=== PATIENT | male | born 1980 | race Caucasian/White ===

== ENCOUNTER 2019-07-12 12:35 | Emergency (ER) | payer OTHER, SELFPAY ==
[2019-07-12 13:25] LABS: #Basophils 0.1 thou/uL (0.0-0.2); #Eosinphils 0.4 thou/uL (0.0-0.7); #Lymphocytes 2.4 thou/uL (1.20-3.40); #Monocytes 0.6 thou/uL (0.11-0.59); %Basophils 0.6 % (0.0-1.0); %Eosinophils 3.8 % (0.0-10.0); %Lymphocytes 25.8 % (21.0-51.0); %Monocytes 6.1 % (0.0-10.0); %Neutrophils 63.7 % (42.0-75.0); Hemoglobin 15.2 g/dL (14.0-18.0); Mean Corpuscular HGB CONC 33.5 g/dL (32.0-36.0); Mean Corpuscular Hemoglobin 29.8 pg (27.0-31.0); Mean Corpuscular Volume 89.1 fL (78.0-98.0); Mean Platelet Volume 7.5 fL (7.4-10.4); Platelet Count 319 thou/uL (130-400); RBC Distribution Width 11.5 % (11.5-14.5); Red Blood Cell (RBC) Count 5.08 mill/uL (4.70-6.10); White Blood Cell (WBC) Count 9.4 thou/uL (4.8-10.8)
[2019-07-12 13:35] LABS: ALT (SGPT) 85 U/L (8-55); AST (SGOT) 41 U/L (5-34); Albumin 4.3 g/dL (3.5-5.0); Alkaline Phosphatase 88 U/L (40-110); Anion Gap 15 mmol/L (10-20); BUN (Urea Nitrogen) 10 mg/dL (8.9-20.6); Bilirubin, Total 1.1 mg/dL (0.2-1.2); Calc. Creatinine Clearance 0 mL/min (70-130); Calcium 9.1 mg/dL (7.8-10.44); Carbon Dioxide 23 mmol/L (22-29); Chloride 106 mmol/L (98-107); Estimated GFR-MDRD Greater than 90; Globulin 2.9 g/dL (2.4-3.5); Glucose 99 mg/dL (70-105); Potassium 4.1 mmol/L (3.5-5.1); Protein, Total 7.2 g/dL (6.0-8.3); Sodium 140 mmol/L (136-145)
[2019-07-12] MEDS ORDERED: Rivaroxaban 10 MG TAB ONE (14:33)
[2019-07-12 14:40] LABS: PTT 27.1 SEC (22.9-36.1); Prothrombin Time 12.9 SEC (12.0-14.7)
--- NOTE | 2019-07-12 15:04 | ULT ---
VENOUS DUPLEX STUDY RIGHT LOWER EXTREMITY: Date: 07/12/19 INDICATION: Right lower extremity pain and edema. FINDINGS: Ultrasound Doppler study performed on venous structures. Color Doppler with spectral analysis and com pression studies performed. The right common femoral and superficial femoral veins show normal flow and compression. There is occlusive thrombus seen in the popliteal vein with extension into the posterior tibial vein. IMPRESSION: Evidence of right lower extremity deep venous thrombosis with thrombus in the right popliteal vein. Findings were relayed to Dr. Parra. CODE CR. POS: [facility]
== END 2019-07-12 14:39 | disposition home or self-care (01) ==
LOC: SCSER 12:35
DX: I82.431 Acute embolism and thrombosis of right popliteal vein (principal); F17.220 Nicotine dependence, chewing tobacco, uncomplicated
CPT/HCPCS: 36415; 80053; 85025; 85610; 85730